=== PATIENT | female | born 1945 | race Caucasian/White ===

== ENCOUNTER 2020-05-31 23:36 | Emergency (ER) | payer MEDICARE, MEDICAID ==
[~2020-05-31] VITALS: Ht 165.1 cm; Wt 112.7 kg
[2020-05-31] MEDS ORDERED: ZOCOR20 M1 PO (23:55)
[2020-05-31] MEDS ORDERED: NORVASC 5MG5 MG/TAB PO (23:55)
[2020-05-31] MEDS ORDERED: LOTENSIN40 M1 PO (23:56)
[2020-06-01 01:43] LABS: HEMATOCRIT 35.1 % (37.0-47.0); HEMOGLOBIN 10.2 g/dL (12.5-16.0); MEAN CELL VOLUME 82 fl (78-100); MEAN PLATELET VOLUME 9.7 fl (7.4-10.4); PLATELET COUNT 326 K/mm3 (130-400); RED BLOOD COUNT 4.26 M/mm3 (4.10-5.30); RED CELL DISTRIBUTION WIDTH 16.9 % (11.5-14.5); WHITE BLOOD COUNT 8.2 K/mm3 (4.8-10.8)
[2020-06-01 01:51] LABS: MEAN CORPUSCULAR HEMOGLOBIN 24 pg (27-31); MEAN CORPUSCULAR HGB CONC 29 g/dL (33-37)
[2020-06-01 01:52] LABS: HYPOCHROMIA 2+; LYMPHOCYTE 32 % (20-51); MICROCYTOSIS 1+; MONOCYTE 10 % (3-10); NEUTROPHILS 55 % (42-75)
[2020-06-01 01:53] LABS: ALBUMIN 3.7 g/dL (3.4-4.8)
[2020-06-01 01:54] LABS: POTASSIUM 4.2 mmol/L (3.5-5.1); SODIUM 140 mmol/L (136-145)
[2020-06-01 01:55] LABS: CALCIUM 8.8 mg/dL (8.3-10.5)
[2020-06-01 01:56] LABS: GLUCOSE 105 mg/dL (65-105); TOTAL PROTEIN 6.8 g/dL (6.2-8.1)
[2020-06-01 01:57] LABS: CARBON DIOXIDE 24 mmol/L (23-31)
[2020-06-01 01:58] LABS: TOTAL BILIRUBIN 0.4 mg/dL (0.2-1.2)
[2020-06-01 02:01] LABS: AST-SGOT 16 U/L (5-34)
[2020-06-01 02:02] LABS: MAGNESIUM 2.18 mg/dL (1.60-2.60)
[2020-06-01 02:03] LABS: URINE APPEARANCE CLEAR; URINE COLOR YELLOW
[2020-06-01 02:03] LABS: ALT/SGPT 13 U/L (0-55)
[2020-06-01 02:04] LABS: URINE BILIRUBIN NEGATIVE (NEGATIVE); URINE BLOOD NEGATIVE (NEGATIVE); URINE GLUCOSE NEGATIVE (NEGATIVE); URINE KETONE NEGATIVE (NEGATIVE); URINE LEUKOCYTE ESTERASE NEGATIVE (NEGATIVE); URINE NITRATE POSITIVE (NEGATIVE); URINE PROTEIN(semi-quant) NEGATIVE (NEGATIVE); URINE UROBILINOGEN NORMAL (NORMAL); URINE WBC 0-1 /hpf (0-3)
[2020-06-01 02:09] LABS: TROPONIN-I < 0.03 ng/mL (<0.030)
[2020-06-01] MEDS ORDERED: LEVSIN-SL0.125 MG SL (04:12)
[2020-06-01] MEDS ORDERED: CEPHALEXIN500 M1 PO (04:12)
[2020-06-01 04:38] VITALS: BP 145/73
== END 2020-06-01 04:45 | disposition home or self-care (01) ==
LOC: ED 23:36
PROVIDERS: Nurse Practitioner Family
DX: K29.50 Unspecified chronic gastritis without bleeding (principal); N39.0 Urinary tract infection, site not specified; I10 Essential (primary) hypertension; E78.5 Hyperlipidemia, unspecified; Z88.5 Allergy status to narcotic agent; Z79.899 Other long term (current) drug therapy
CPT/HCPCS: Q9967

== ENCOUNTER → 2020-12-12 | Outpatient (CLI) | payer MEDICARE, MEDICAID ==
[~2020-12-12] MED LIST: CEPHALEXIN500 M1 PO; LEVSIN-SL0.125 MG SL; LOTENSIN40 M1 PO; NORVASC 5MG5 MG/TAB PO; ZOCOR20 M1 PO
== END ==
LOC: RAD 10:45 → MAMMO 01-01 10:45 → RAD 01-02 13:36 → MAMMO 01-02 14:30
DX: I08.3 Combined rheumatic disorders of mitral, aortic and tricuspid valves (principal)

== ENCOUNTER → 2020-12-14 | Outpatient (CLI) | payer MEDICARE, MEDICAID ==
[2020-12-14 10:06] LABS: ALBUMIN 2.7 g/dL (3.4-4.8); POTASSIUM 3.7 mmol/L (3.5-5.1)
[2020-12-14 10:07] LABS: CALCIUM 7.8 mg/dL (8.3-10.5)
[2020-12-14 10:09] LABS: TOTAL PROTEIN 6.2 g/dL (6.2-8.1)
[2020-12-14 10:10] LABS: TOTAL BILIRUBIN 0.5 mg/dL (0.2-1.2)
[2020-12-14 11:27] LABS: HEMATOCRIT 31.3 % (37.0-47.0); HEMOGLOBIN 9.6 g/dL (12.5-16.0); MEAN CELL VOLUME 83 fl (78-100); MEAN CORPUSCULAR HEMOGLOBIN 26 pg (27-31); MEAN CORPUSCULAR HGB CONC 31 g/dL (33-37); MEAN PLATELET VOLUME 8.7 fl (7.4-10.4); RED BLOOD COUNT 3.76 M/mm3 (4.10-5.30); WHITE BLOOD COUNT 10.9 K/mm3 (4.8-10.8)
[2020-12-14 11:39] LABS: PLATELET COUNT 512 K/mm3 (130-400)
[2020-12-14 11:51] LABS: HYPOCHROMIA 1+; LYMPHOCYTE 10 % (20-51); MONOCYTE 11 % (3-10); NEUTROPHILS 78 % (42-75)
== END ==
LOC: LAB 09:40
PROVIDERS: Family Medicine
DX: E78.00 Pure hypercholesterolemia, unspecified (principal); I10 Essential (primary) hypertension; D64.9 Anemia, unspecified; R60.0 Localized edema

== ENCOUNTER → 2020-12-28 | Outpatient (CLI) | payer MEDICARE, MEDICAID | LOC: CARDLAB 08:04 → CARDREHAB 08:44 → CARDLAB 12:24 | DX: Z01.810 Encounter for preprocedural cardiovascular examination (principal); R06.09 Other forms of dyspnea | CPT/HCPCS: A9500 ==

== ENCOUNTER → 2021-01-07 | Outpatient (CLI) | payer MEDICARE, MEDICAID ==
[2021-01-07 11:51] LABS: HEMATOCRIT 42.9 % (37.0-47.0); HEMOGLOBIN 12.9 g/dL (12.5-16.0); MEAN PLATELET VOLUME 9.6 fl (7.4-10.4); RED BLOOD COUNT 4.84 M/mm3 (4.10-5.30); RED CELL DISTRIBUTION WIDTH 18.3 % (11.5-14.5); WHITE BLOOD COUNT 8.9 K/mm3 (4.8-10.8)
[2021-01-07 11:56] LABS: POTASSIUM 4.5 mmol/L (3.5-5.1)
[2021-01-07 11:57] LABS: CALCIUM 9.2 mg/dL (8.3-10.5)
== END ==
LOC: LAB 11:36
PROVIDERS: Family Medicine
DX: R73.9 Hyperglycemia, unspecified (principal)

== ENCOUNTER → 2021-01-30 | Outpatient (CLI) | payer MEDICARE, MEDICAID | LOC: MAMMO 10:42 | DX: Z12.31 Encounter for screening mammogram for malignant neoplasm of breast (principal) ==

== ENCOUNTER → 2021-01-30 | Outpatient (CLI) | payer MEDICARE, MEDICAID | LOC: MAMMO 10:41 | DX: Z12.39 Encounter for other screening for malignant neoplasm of breast (principal); Z13.820 Encounter for screening for osteoporosis; M85.80 Other specified disorders of bone density and structure, unspecified site ==

== ENCOUNTER → 2021-03-26 | Outpatient (CLI) | payer MEDICARE, MEDICAID ==
[2021-03-26 11:46] LABS: HEMOGLOBIN 13.6 g/dL (12.5-16.0); MEAN PLATELET VOLUME 9.2 fl (7.4-10.4); RED BLOOD COUNT 4.86 M/mm3 (4.10-5.30); RED CELL DISTRIBUTION WIDTH 14.2 % (11.5-14.5); WHITE BLOOD COUNT 8.8 K/mm3 (4.8-10.8)
[2021-03-26 11:54] LABS: ALBUMIN 3.8 g/dL (3.4-4.8); POTASSIUM 4.1 mmol/L (3.5-5.1)
[2021-03-26 11:55] LABS: CALCIUM 9.8 mg/dL (8.3-10.5)
[2021-03-26 11:56] LABS: TOTAL PROTEIN 7.8 g/dL (6.2-8.1)
[2021-03-26 11:58] LABS: TOTAL BILIRUBIN 0.7 mg/dL (0.2-1.2)
== END ==
LOC: LAB 11:29
PROVIDERS: Surgery
DX: Z48.89 Encounter for other specified surgical aftercare (principal)

== ENCOUNTER → 2021-08-05 | Outpatient (CLI) | payer MEDICARE, MEDICAID ==
[2021-08-05 13:39] LABS: CALCIUM 9.7 mg/dL (8.3-10.5)
[2021-08-05 14:23] LABS: POTASSIUM 4.7 mmol/L (3.5-5.1)
== END ==
LOC: LAB 13:15
PROVIDERS: Family Medicine
DX: R60.0 Localized edema (principal)

== ENCOUNTER → 2021-11-14 | Outpatient (CLI) | payer MEDICARE, MEDICAID ==
[~2021-11-14] VITALS: Ht 165.1 cm; Wt 107.7 kg
[2021-11-14 11:21] LABS: BASO # 0.03 K/mm3 (0.02-0.10); EOS % 1.6 % (1.0-5.0); HEMATOCRIT 43.3 % (37.0-47.0); HEMOGLOBIN 13.7 g/dL (12.5-16.0); LYMPH# 1.36 K/mm3 (1.50-4.00); MEAN CELL VOLUME 96 fl (78-100); MEAN CORPUSCULAR HEMOGLOBIN 30 pg (27-31); MEAN CORPUSCULAR HGB CONC 32 g/dL (33-37); MEAN PLATELET VOLUME 9.2 fl (7.4-10.4); MONO # 0.67 K/mm3 (0.20-0.80); NEU # 4.08 K/mm3 (1.40-6.50); PLATELET COUNT 252 K/mm3 (130-400); RED BLOOD COUNT 4.52 M/mm3 (4.10-5.30); RED CELL DISTRIBUTION WIDTH 13.5 % (11.5-14.5); WHITE BLOOD COUNT 6.3 K/mm3 (4.8-10.8)
[2021-11-14 11:32] LABS: ALBUMIN 3.6 g/dL (3.4-4.8); POTASSIUM 4.3 mmol/L (3.5-5.1)
[2021-11-14 11:35] LABS: TOTAL PROTEIN 6.5 g/dL (6.2-8.1)
[2021-11-14 11:36] LABS: TOTAL BILIRUBIN 0.7 mg/dL (0.2-1.2)
[2021-11-14 12:10] LABS: URINE APPEARANCE CLOUDY; URINE BILIRUBIN NEGATIVE (NEGATIVE); URINE BLOOD TRACE (NEGATIVE); URINE COLOR YELLOW; URINE GLUCOSE NEGATIVE (NEGATIVE); URINE KETONE 1+ (NEGATIVE); URINE LEUKOCYTE ESTERASE TRACE (NEGATIVE); URINE NITRATE NEGATIVE (NEGATIVE); URINE PROTEIN(semi-quant) NEGATIVE (NEGATIVE); URINE UROBILINOGEN NORMAL (NORMAL)
[2021-11-14 12:11] LABS: URINE MUCUS PRESENT (NOT PRESENT)
[2021-11-14 14:14] VITALS: BP 156/79
[2021-11-14 14:26] LABS: ERYTHROCYTE SEDIMENTATION RATE 7 mm/hr (0-30)
== END ==
LOC: RAD 11:03
PROVIDERS: Family Medicine
DX: G47.30 Sleep apnea, unspecified (principal); R01.1 Cardiac murmur, unspecified; H81.393 Other peripheral vertigo, bilateral; B37.2 Candidiasis of skin and nail; R73.9 Hyperglycemia, unspecified; R19.5 Other fecal abnormalities
CPT/HCPCS: J7030

== ENCOUNTER → 2021-11-15 | Outpatient (CLI) | payer MEDICARE, MEDICAID | LOC: LAB 10:27 | DX: R06.09 Other forms of dyspnea (principal); R01.1 Cardiac murmur, unspecified; R19.5 Other fecal abnormalities; G47.30 Sleep apnea, unspecified; H81.399 Other peripheral vertigo, unspecified ear; B37.2 Candidiasis of skin and nail; R51.9 Headache, unspecified; H81.393 Other peripheral vertigo, bilateral; R73.9 Hyperglycemia, unspecified; R05.2 Subacute cough ==

== ENCOUNTER → 2022-02-03 | Outpatient (CLI) | payer MEDICARE, MEDICAID ==
[2022-02-03 09:33] LABS: ALBUMIN 3.7 g/dL (3.4-4.8); POTASSIUM 4.4 mmol/L (3.5-5.1)
[2022-02-03 09:34] LABS: CALCIUM 9.1 mg/dL (8.3-10.5)
[2022-02-03 09:35] LABS: TOTAL PROTEIN 6.9 g/dL (6.2-8.1)
[2022-02-03 09:37] LABS: TOTAL BILIRUBIN 0.9 mg/dL (0.2-1.2)
== END ==
LOC: LAB 09:10
PROVIDERS: Family Medicine
DX: B35.4 Tinea corporis (principal); R09.02 Hypoxemia; E78.00 Pure hypercholesterolemia, unspecified; I10 Essential (primary) hypertension; R60.0 Localized edema

== ENCOUNTER → 2022-02-19 | Outpatient (CLI) | payer MEDICARE, MEDICAID | LOC: MAMMO 10:30 | DX: Z12.31 Encounter for screening mammogram for malignant neoplasm of breast (principal) ==

== ENCOUNTER 2022-04-17 10:48 | Outpatient (RCR) | payer MEDICARE, MEDICAID | END 2022-05-07 | disposition home or self-care (01) | LOC: OT | DX: S63.501D Unspecified sprain of right wrist, subsequent encounter (principal); X58.XXXD Exposure to other specified factors, subsequent encounter ==

== ENCOUNTER 2022-06-12 09:59 | Outpatient (RCR) | payer MEDICARE, MEDICAID ==
[2022-06-27] MEDS ORDERED: ROSUVASTATIN CAL5 MG PO (10:04)
[2022-06-27] MEDS ORDERED: ALENDRONATE SOD35 M1 PO (10:04)
[2022-06-27] MEDS ORDERED: BENAZEPRIL HCL20 MG PO (10:05)
== END 2022-07-08 | disposition home or self-care (01) ==
LOC: PT
DX: H91.93 Unspecified hearing loss, bilateral (principal); H93.13 Tinnitus, bilateral

== ENCOUNTER 2022-06-27 09:52 | Emergency (ER) | payer MEDICARE, MEDICAID ==
[~2022-06-27] VITALS: Ht 162.6 cm; Wt 119.0 kg
[2022-06-27] MEDS ORDERED: ROSUVASTATIN CAL5 MG PO (10:04)
[2022-06-27] MEDS ORDERED: ALENDRONATE SOD35 M1 PO (10:04)
[2022-06-27] MEDS ORDERED: BENAZEPRIL HCL20 MG PO (10:05)
[2022-06-27 10:55] LABS: ALBUMIN 3.8 g/dL (3.4-4.8)
[2022-06-27 10:56] LABS: POTASSIUM 4.4 mmol/L (3.5-5.1); SODIUM 140 mmol/L (136-145)
[2022-06-27 10:59] LABS: CARBON DIOXIDE 21 mmol/L (23-31)
[2022-06-27 11:00] LABS: TOTAL BILIRUBIN 1.2 mg/dL (0.2-1.2)
[2022-06-27 11:03] LABS: AST-SGOT 18 U/L (5-34)
[2022-06-27 11:05] LABS: BASO # 0.03 K/mm3 (0.02-0.10); EOS # 0.16 K/mm3 (0.04-0.40); EOS % 2.2 % (1.0-5.0); HEMATOCRIT 47.7 % (37.0-47.0); HEMOGLOBIN 15.4 g/dL (12.5-16.0); MEAN CELL VOLUME 97 fl (78-100); MEAN CORPUSCULAR HEMOGLOBIN 31 pg (27-31); MEAN CORPUSCULAR HGB CONC 32 g/dL (33-37); MONO # 0.81 K/mm3 (0.20-0.80); NEU # 4.63 K/mm3 (1.40-6.50); PLATELET COUNT 227 K/mm3 (130-400); RED BLOOD COUNT 4.94 M/mm3 (4.10-5.30); RED CELL DISTRIBUTION WIDTH 13.6 % (11.5-14.5); WHITE BLOOD COUNT 7.3 K/mm3 (4.8-10.8)
[2022-06-27 11:05] LABS: ALT/SGPT 17 U/L (0-55); LIPASE 7 U/L (8-78)
[2022-06-27 11:12] LABS: URINE APPEARANCE CLEAR; URINE BILIRUBIN NEGATIVE (NEGATIVE); URINE BLOOD NEGATIVE (NEGATIVE); URINE COLOR YELLOW; URINE GLUCOSE NEGATIVE (NEGATIVE); URINE KETONE NEGATIVE (NEGATIVE); URINE LEUKOCYTE ESTERASE NEGATIVE (NEGATIVE); URINE NITRATE NEGATIVE (NEGATIVE); URINE PROTEIN(semi-quant) TRACE (NEGATIVE); URINE UROBILINOGEN NORMAL (NORMAL)
[2022-06-27 11:12] LABS: TROPONIN-I < 0.030 ng/mL (<0.030)
[2022-06-27 11:18] LABS: URINE WBC 0-1 /hpf (0-3)
[2022-06-27 11:21] LABS: TOTAL PROTEIN 7.2 g/dL (6.2-8.1)
[2022-06-27 11:23] LABS: GLUCOSE 119 mg/dL (65-105)
[2022-06-27 13:50] VITALS: BP 170/84
== END 2022-06-27 13:43 | disposition home or self-care (01) ==
LOC: ED 09:52
PROVIDERS: Physician Assistant
DX: Q45.3 Other congenital malformations of pancreas and pancreatic duct (principal); Z90.49 Acquired absence of other specified parts of digestive tract; Z98.890 Other specified postprocedural states
CPT/HCPCS: J3010; Q9967

== ENCOUNTER → 2022-07-03 | Outpatient (CLI) | payer MEDICARE, MEDICAID ==
[~2022-07-03] MED LIST changes: +ALENDRONATE SOD35 M1 PO; +BENAZEPRIL HCL20 MG PO; +ROSUVASTATIN CAL5 MG PO
== END ==
LOC: RAD 07:00
DX: R10.33 Periumbilical pain (principal)

== ENCOUNTER → 2023-02-23 | Outpatient (CLI) | payer MEDICARE, MEDICAID ==
[~2023-02-23] MED LIST changes: +FUROSEMIDE40 MG; +POTASSIUM CHLO10 ME8 PO; +ROBAXIN 75750 MG/TA1 PO
[2023-02-23 11:20] LABS: POTASSIUM 4.6 mmol/L (3.5-5.1)
[2023-02-23 11:22] LABS: CALCIUM 9.3 mg/dL (8.3-10.5)
== END ==
LOC: LAB 10:58
PROVIDERS: Family Medicine
DX: M62.830 Muscle spasm of back (principal); R60.0 Localized edema; I10 Essential (primary) hypertension; E78.00 Pure hypercholesterolemia, unspecified; R09.02 Hypoxemia

== ENCOUNTER → 2023-06-26 | Outpatient (CLI) | payer MEDICARE, MEDICAID ==
[2023-06-26 12:27] LABS: CALCIUM 9.5 mg/dL (8.3-10.5)
[2023-06-26 12:30] LABS: URINE APPEARANCE CLOUDY (CLEAR); URINE COLOR YELLOW (YELLOW); URINE PROTEIN(semi-quant) NEGATIVE (NEGATIVE)
[2023-06-26 12:31] LABS: URINE BILIRUBIN NEGATIVE (NEGATIVE); URINE BLOOD TRACE-INTACT (NEGATIVE); URINE GLUCOSE NEGATIVE (NEGATIVE); URINE KETONE NEGATIVE (NEGATIVE); URINE LEUKOCYTE ESTERASE NEGATIVE (NEGATIVE); URINE NITRATE NEGATIVE (NEGATIVE); URINE WBC >50 /hpf (0-3)
== END ==
LOC: LAB 11:44
PROVIDERS: Family Medicine
DX: Z11.59 Encounter for screening for other viral diseases (principal); I10 Essential (primary) hypertension; E78.2 Mixed hyperlipidemia; R35.0 Frequency of micturition

== ENCOUNTER 2023-07-28 11:01 | Outpatient (RCR) | payer MEDICARE | END 2023-08-06 | disposition home or self-care (01) | LOC: PT | DX: M72.2 Plantar fascial fibromatosis (principal); M76.822 Posterior tibial tendinitis, left leg; M62.571 Muscle wasting and atrophy, not elsewhere classified, right ankle and foot; M62.572 Muscle wasting and atrophy, not elsewhere classified, left ankle and foot; G63 Polyneuropathy in diseases classified elsewhere ==

== ENCOUNTER 2024-01-26 21:30 | Emergency (ER) | payer MEDICARE, MEDICAID ==
[~2024-01-26] VITALS: Ht 177.8 cm; Wt 122.4 kg
[~2024-01-26 21:30] MED LIST changes: -FUROSEMIDE40 MG; +FUROSEMIDE40 MG PO
[2024-01-26] MEDS ORDERED: Doxycycline Monohydrate 100 MG CAP PO ONE (22:45)
[2024-01-26] MEDS ORDERED: Albuterol/Ipratropium 3 MG-0.5 MG/3 ML Neb Soln IH ONE (22:45)
[2024-01-26] MEDS ORDERED: FAMOTIDINE20 MG PO (22:56)
[2024-01-26] MEDS ORDERED: B COMPLEX1 EACH PO (22:56)
[2024-01-26] MEDS ORDERED: ST. JOSEPH ASPI81 M1 PO (22:57)
[2024-01-26] MEDS ORDERED: NIACIN500 M7 PO (22:58)
[2024-01-26 23:08] LABS: BASO # 0.01 K/mm3 (0.02-0.10); EOS # 0.33 K/mm3 (0.04-0.40); EOS % 3.7 % (1.0-5.0); HEMATOCRIT 42.4 % (37.0-47.0); HEMOGLOBIN 13.7 g/dL (12.5-16.0); LYMPH# 1.29 K/mm3 (1.50-4.00); MEAN CELL VOLUME 100 fl (78-100); MEAN CORPUSCULAR HEMOGLOBIN 32 pg (27-31); MEAN CORPUSCULAR HGB CONC 32 g/dL (33-37); MEAN PLATELET VOLUME 9.9 fl (7.4-10.4); MONO # 1.18 K/mm3 (0.20-0.80); NEU # 6.12 K/mm3 (1.40-6.50); PLATELET COUNT 230 K/mm3 (130-400); RED BLOOD COUNT 4.26 M/mm3 (4.10-5.30); RED CELL DISTRIBUTION WIDTH 13.1 % (11.5-14.5)
[2024-01-26 23:15] LABS: SODIUM 138 mmol/L (136-145)
[2024-01-26 23:16] LABS: ALBUMIN 3.6 g/dL (3.4-4.8)
[2024-01-26 23:18] LABS: TOTAL PROTEIN 6.8 g/dL (6.2-8.1)
[2024-01-26 23:19] LABS: CARBON DIOXIDE 21 mmol/L (23-31); GLUCOSE 172 mg/dL (65-105)
[2024-01-26 23:20] LABS: TOTAL BILIRUBIN 1.9 mg/dL (0.2-1.2)
[2024-01-26 23:23] LABS: AST-SGOT 203 U/L (5-34)
[2024-01-26 23:24] LABS: PROTHROMBIN TIME 10.2 SECONDS (9.0-12.0)
[2024-01-26 23:26] LABS: ALT/SGPT 167 U/L (0-55)
[2024-01-26 23:36] LABS: TROPONIN-I < 0.030 ng/mL (0.00-0.033)
[2024-01-27] MEDS ORDERED: MAGNESIUM250 M1 PO (00:14)
[2024-01-27 00:32] LABS: URINE APPEARANCE CLOUDY (CLEAR); URINE BILIRUBIN 1+ (NEGATIVE); URINE COLOR AMBER (YELLOW); URINE GLUCOSE NEGATIVE (NEGATIVE); URINE KETONE TRACE (NEGATIVE); URINE NITRATE NEGATIVE (NEGATIVE); URINE PROTEIN(semi-quant) NEGATIVE (NEGATIVE)
[2024-01-27 00:33] LABS: URINE BLOOD NEGATIVE (NEGATIVE); URINE LEUKOCYTE ESTERASE 1+ (NEGATIVE); URINE MUCUS PRESENT (NOT PRESENT)
[2024-01-27] MEDS ORDERED: Iohexol 350 - 100 ML VIAL IV ONE (00:45)
[2024-01-27 02:08] LABS: D-DIMER 1.04 mg/L FEU (0.15-0.50)
[2024-01-27] MEDS ORDERED: Ketorolac 30 MG/ML VIAL IV ONE (03:00)
[2024-01-27] MEDS ORDERED: NYSTOP POWDER15 GM TP (04:04)
[2024-01-27] MEDS ORDERED: VIBRAMYCIN HYC100 MG PO (04:04)
[2024-01-27 04:25] VITALS: BP 129/70
[2024-01-28] MEDS ORDERED: AZO-CRANBERRY450 MG PO (20:40)
== END 2024-01-27 04:25 | disposition home or self-care (01) ==
LOC: ED 21:30
PROVIDERS: Internal Medicine; Physician Assistant
DX: L03.113 Cellulitis of right upper limb (principal); B37.9 Candidiasis, unspecified; R74.01 Elevation of levels of liver transaminase levels; R05.9 Cough, unspecified
CPT/HCPCS: J1885; Q9967

== ENCOUNTER 2024-01-28 16:03 | Emergency (ER) | payer MEDICARE, MEDICAID ==
[~2024-01-28] VITALS: Ht 157.5 cm; Wt 122.3 kg
[~2024-01-28 16:03] MED LIST changes: +B COMPLEX1 EACH PO; +FAMOTIDINE20 MG PO; +MAGNESIUM250 M1 PO; +NIACIN500 M7 PO; +NYSTOP POWDER15 GM TP; +ST. JOSEPH ASPI81 M1 PO; +VIBRAMYCIN HYC100 MG PO
[2024-01-28 17:16] LABS: BASO # 0.03 K/mm3 (0.02-0.10); EOS # 0.33 K/mm3 (0.04-0.40); EOS % 2.8 % (1.0-5.0); HEMATOCRIT 41.6 % (37.0-47.0); HEMOGLOBIN 13.4 g/dL (12.5-16.0); LYMPH# 1.37 K/mm3 (1.50-4.00); MEAN CELL VOLUME 99 fl (78-100); MEAN CORPUSCULAR HEMOGLOBIN 32 pg (27-31); MEAN CORPUSCULAR HGB CONC 32 g/dL (33-37); MEAN PLATELET VOLUME 9.7 fl (7.4-10.4); MONO # 1.22 K/mm3 (0.20-0.80); NEU # 8.95 K/mm3 (1.40-6.50); PLATELET COUNT 231 K/mm3 (130-400); RED BLOOD COUNT 4.21 M/mm3 (4.10-5.30); RED CELL DISTRIBUTION WIDTH 13.2 % (11.5-14.5)
[2024-01-28 17:26] LABS: ALBUMIN 3.4 g/dL (3.4-4.8)
[2024-01-28 17:28] LABS: TOTAL PROTEIN 6.6 g/dL (6.2-8.1)
[2024-01-28 17:30] LABS: TOTAL BILIRUBIN 2.6 mg/dL (0.2-1.2)
[2024-01-28] MEDS ORDERED: Piperacillin/Tazobactam Sodium 4.5 GM in Water For Injection,Sterile 20 ML IV ONE (18:00)
[2024-01-28] MEDS ORDERED: Vancomycin 2 G in NS 500 ML IV ONE (18:15)
[2024-01-28 20:00] VITALS: BP 135/72
[2024-01-28] MEDS ORDERED: AZO-CRANBERRY450 MG PO (20:40)
== END 2024-01-28 20:00 | disposition still patient (30) ==
LOC: ED 16:03
PROVIDERS: Family Medicine
DX: A41.9 Sepsis, unspecified organism (principal); E66.01 Morbid (severe) obesity due to excess calories; L03.314 Cellulitis of groin; R74.01 Elevation of levels of liver transaminase levels
CPT/HCPCS: J2543; J3370; J7040; J7120

== ENCOUNTER 2024-01-28 17:58 | Inpatient (IN) | payer MEDICARE, MEDICAID ==
[~2024-01-28] VITALS: Ht 160 cm; Wt 120.8 kg
[2024-01-28] MEDS ORDERED: Ibuprofen 200 MG TAB PO PRN (18:15)
[2024-01-28] MEDS ORDERED: Polyethylene Glycol 3350 Powder 17 GM PACKET PO PRN (18:15)
[2024-01-28 20:11] VITALS: BP 135/72
[2024-01-28] MEDS ORDERED: AZO-CRANBERRY450 MG PO (20:40)
[2024-01-28] MEDS ORDERED: Miconazole 2% Topical Powder BOTTLE TP SCH (21:00)
[2024-01-29] MEDS ORDERED: Piperacillin/Tazobactam Sodium 4.5 GM in NS 100 ML IV SCH
[2024-01-29 02:25] VITALS: BP 155/67
[2024-01-29 05:46] VITALS: BP 148/78
[2024-01-29] MEDS ORDERED: Magnesium Oxide 400 MG TAB PO SCH (09:00)
[2024-01-29] MEDS ORDERED: amLODIPine 5 MG TAB PO SCH (09:00)
[2024-01-29] MEDS ORDERED: Lisinopril 5 MG TAB PO SCH (09:00)
[2024-01-29] MEDS ORDERED: Famotidine 20 MG TAB PO SCH (09:00)
[2024-01-29 09:08] VITALS: BP 167/79
[2024-01-29 09:27] LABS: ALBUMIN 3.5 g/dL (3.4-4.8)
[2024-01-29 09:30] LABS: TOTAL PROTEIN 6.7 g/dL (6.2-8.1)
[2024-01-29 09:31] LABS: TOTAL BILIRUBIN 2.4 mg/dL (0.2-1.2)
[2024-01-29 09:33] LABS: BASO # 0.03 K/mm3 (0.02-0.10); EOS # 0.33 K/mm3 (0.04-0.40); EOS % 2.6 % (1.0-5.0); HEMATOCRIT 40.8 % (37.0-47.0); HEMOGLOBIN 13.2 g/dL (12.5-16.0); LYMPH# 1.24 K/mm3 (1.50-4.00); MEAN CELL VOLUME 99 fl (78-100); MEAN CORPUSCULAR HEMOGLOBIN 32 pg (27-31); MEAN CORPUSCULAR HGB CONC 32 g/dL (33-37); MEAN PLATELET VOLUME 9.8 fl (7.4-10.4); MONO # 0.93 K/mm3 (0.20-0.80); NEU # 10.15 K/mm3 (1.40-6.50); PLATELET COUNT 248 K/mm3 (130-400); RED BLOOD COUNT 4.13 M/mm3 (4.10-5.30); RED CELL DISTRIBUTION WIDTH 13.3 % (11.5-14.5); WHITE BLOOD COUNT 12.8 K/mm3 (4.8-10.8)
[2024-01-29 09:36] LABS: MAGNESIUM 2.15 mg/dL (1.60-2.60)
[2024-01-29 14:19] VITALS: BP 159/69
[2024-01-29] MEDS ORDERED: diphenhydrAMINE 25 MG CAP PO PRN (16:00)
[2024-01-29] MEDS ORDERED: predniSONE 10 MG TAB PO SCH (16:00)
[2024-01-29] MEDS ORDERED: ceFAZolin 2 G in Water For Injection,Sterile 20 ML IV SCH (16:00)
[2024-01-29 18:24] VITALS: BP 155/84
[2024-01-29 22:01] VITALS: BP 149/75
[2024-01-30 06:16] VITALS: BP 123/68
[2024-01-30 09:38] LABS: BASO # 0.03 K/mm3 (0.02-0.10); HEMATOCRIT 40.7 % (37.0-47.0); HEMOGLOBIN 13.2 g/dL (12.5-16.0); LYMPH# 1.36 K/mm3 (1.50-4.00); MEAN CELL VOLUME 100 fl (78-100); MEAN CORPUSCULAR HEMOGLOBIN 33 pg (27-31); MEAN CORPUSCULAR HGB CONC 32 g/dL (33-37); MEAN PLATELET VOLUME 10.1 fl (7.4-10.4); MONO # 0.97 K/mm3 (0.20-0.80); PLATELET COUNT 282 K/mm3 (130-400); RED BLOOD COUNT 4.06 M/mm3 (4.10-5.30); RED CELL DISTRIBUTION WIDTH 13.2 % (11.5-14.5); WHITE BLOOD COUNT 17.6 K/mm3 (4.8-10.8)
[2024-01-30 09:54] VITALS: BP 133/74
[2024-01-30 10:37] LABS: ALBUMIN 3.4 g/dL (3.4-4.8); TOTAL PROTEIN 6.7 g/dL (6.2-8.1)
[2024-01-30 10:38] LABS: CALCIUM 9.3 mg/dL (8.3-10.5)
[2024-01-30 10:41] LABS: TOTAL BILIRUBIN 1.1 mg/dL (0.2-1.2)
[2024-01-30 14:01] VITALS: BP 136/74
[2024-01-30] MEDS ORDERED: guaiFENesin/Dextromethorphan Oral Soln 200-20 MG/10 ML UD PO PRN (17:45)
[2024-01-30 17:51] VITALS: BP 131/76
[2024-01-30] MEDS ORDERED: Heparin 5,000 UNITS/ML 1 ML VIAL IV PRN (18:00)
[2024-01-30] MEDS ORDERED: Heparin 5,000 UNITS/ML 1 ML VIAL IV ONE (18:00)
[2024-01-30 21:41] VITALS: BP 128/63
[2024-01-31 05:51] VITALS: BP 137/66
[2024-01-31] MEDS ORDERED: Nitrofurantoin (Mono/Macro) 100 MG CAPSULE PO SCH (08:00)
[2024-01-31 10:10] VITALS: BP 127/63
[2024-01-31 14:00] VITALS: BP 147/74
[2024-01-31 17:12] VITALS: BP 138/81
[2024-01-31 21:28] VITALS: BP 138/64
[2024-02-01 06:10] VITALS: BP 143/74
[2024-02-01 08:02] LABS: HEMATOCRIT 41.4 % (37.0-47.0); HEMOGLOBIN 13.3 g/dL (12.5-16.0); MEAN CELL VOLUME 99 fl (78-100); MEAN CORPUSCULAR HEMOGLOBIN 32 pg (27-31); MEAN CORPUSCULAR HGB CONC 32 g/dL (33-37); MEAN PLATELET VOLUME 9.8 fl (7.4-10.4); PLATELET COUNT 272 K/mm3 (130-400); RED BLOOD COUNT 4.18 M/mm3 (4.10-5.30); RED CELL DISTRIBUTION WIDTH 13.4 % (11.5-14.5); WHITE BLOOD COUNT 17.3 K/mm3 (4.8-10.8)
[2024-02-01 08:14] LABS: ALBUMIN 3.6 g/dL (3.4-4.8)
[2024-02-01 08:16] LABS: CALCIUM 9.3 mg/dL (8.3-10.5)
[2024-02-01 08:17] LABS: TOTAL PROTEIN 6.8 g/dL (6.2-8.1)
[2024-02-01 08:19] LABS: TOTAL BILIRUBIN 0.6 mg/dL (0.2-1.2)
[2024-02-01 10:03] VITALS: BP 139/85
[2024-02-01 10:17] LABS: BAND 5 % (0-10); LYMPHOCYTE 13 % (20-51); MONOCYTE 6 % (3-10)
[2024-02-01 10:18] LABS: METAMYELOCYTE 3 % (0-0); MYELOCYTE 1 % (0-0); NEUTROPHILS 72 % (42-75); NUCLEATED RED BLOOD CELL 1 (0-6)
[2024-02-01 13:38] VITALS: BP 165/88
[2024-02-01 18:10] VITALS: BP 148/82
[2024-02-01 21:48] VITALS: BP 126/67
[2024-02-02 02:06] VITALS: BP 161/71
[2024-02-02 06:15] VITALS: BP 168/75
[2024-02-02] MEDS ORDERED: predniSONE 10 MG TAB PO SCH (08:00)
[2024-02-02 10:08] VITALS: BP 144/77
[2024-02-02 11:05] LABS: HEMATOCRIT 38.6 % (37.0-47.0); HEMOGLOBIN 12.4 g/dL (12.5-16.0); MEAN CELL VOLUME 100 fl (78-100); MEAN CORPUSCULAR HEMOGLOBIN 32 pg (27-31); MEAN CORPUSCULAR HGB CONC 32 g/dL (33-37); MEAN PLATELET VOLUME 9.8 fl (7.4-10.4); PLATELET COUNT 250 K/mm3 (130-400); RED BLOOD COUNT 3.88 M/mm3 (4.10-5.30); RED CELL DISTRIBUTION WIDTH 13.4 % (11.5-14.5); WHITE BLOOD COUNT 16.5 K/mm3 (4.8-10.8)
[2024-02-02 11:12] LABS: ALBUMIN 3.4 g/dL (3.4-4.8)
[2024-02-02 11:13] LABS: CALCIUM 8.7 mg/dL (8.3-10.5)
[2024-02-02 11:15] LABS: TOTAL PROTEIN 6.4 g/dL (6.2-8.1)
[2024-02-02 11:16] LABS: TOTAL BILIRUBIN 0.7 mg/dL (0.2-1.2)
[2024-02-02 11:28] LABS: BAND 2 % (0-10); LYMPHOCYTE 8 % (20-51); METAMYELOCYTE 1 % (0-0); MONOCYTE 10 % (3-10); NEUTROPHILS 79 % (42-75)
[2024-02-02 14:00] VITALS: BP 156/72
[2024-02-02 18:00] VITALS: BP 123/83
[2024-02-02 22:53] VITALS: BP 156/78
[2024-02-03 01:43] VITALS: BP 168/83
[2024-02-03 05:30] VITALS: BP 173/76
[2024-02-03 06:12] LABS: BASO # 0.01 K/mm3 (0.02-0.10); EOS # 0.08 K/mm3 (0.04-0.40); EOS % 0.5 % (1.0-5.0); HEMATOCRIT 39.4 % (37.0-47.0); HEMOGLOBIN 12.6 g/dL (12.5-16.0); LYMPH# 2.35 K/mm3 (1.50-4.00); MEAN CELL VOLUME 100 fl (78-100); MEAN CORPUSCULAR HEMOGLOBIN 32 pg (27-31); MEAN CORPUSCULAR HGB CONC 32 g/dL (33-37); MEAN PLATELET VOLUME 10.1 fl (7.4-10.4); MONO # 1.38 K/mm3 (0.20-0.80); PLATELET COUNT 265 K/mm3 (130-400); RED BLOOD COUNT 3.93 M/mm3 (4.10-5.30); RED CELL DISTRIBUTION WIDTH 13.3 % (11.5-14.5)
[2024-02-03 06:22] LABS: ALBUMIN 3.4 g/dL (3.4-4.8)
[2024-02-03 06:23] LABS: CALCIUM 8.9 mg/dL (8.3-10.5)
[2024-02-03 06:25] LABS: TOTAL PROTEIN 6.4 g/dL (6.2-8.1)
[2024-02-03 06:26] LABS: TOTAL BILIRUBIN 0.6 mg/dL (0.2-1.2)
[2024-02-03 09:36] LABS: NEU # 11.26 K/mm3 (1.40-6.50)
[2024-02-03 10:21] VITALS: BP 154/70
[2024-02-03] MEDS ORDERED: PREDNISONE10 MG PO (12:51)
[2024-02-03] MEDS ORDERED: BACTRIM DS TAB1 EACH PO (12:52)
== END 2024-02-03 13:55 | disposition home or self-care (01) | DRG 872 ==
LOC: MED/SURG 17:58
PROVIDERS: Physician Assistant; ADMIT Family Medicine
DX: A41.9 Sepsis, unspecified organism (principal); L03.90 Cellulitis, unspecified; N39.0 Urinary tract infection, site not specified; R53.1 Weakness; I10 Essential (primary) hypertension; K21.9 Gastro-esophageal reflux disease without esophagitis; E83.42 Hypomagnesemia
CPT/HCPCS: J0690; J1650; J2543; J3370; J7040; J7120; J7512

== ENCOUNTER → 2024-05-25 | Outpatient (CLI) | payer MEDICARE, MEDICAID ==
[~2024-05-25] MED LIST changes: +AZO-CRANBERRY450 MG PO; +BACTRIM DS TAB1 EACH PO; +PREDNISONE10 MG PO
[2024-05-25 12:30] LABS: BASO # 0.03 K/mm3 (0.02-0.10); EOS # 0.16 K/mm3 (0.04-0.40); HEMATOCRIT 44.8 % (37.0-47.0); HEMOGLOBIN 14.1 g/dL (12.5-16.0); LYMPH# 1.78 K/mm3 (1.50-4.00); MEAN CELL VOLUME 100 fl (78-100); MEAN CORPUSCULAR HEMOGLOBIN 31 pg (27-31); MEAN CORPUSCULAR HGB CONC 32 g/dL (33-37); MEAN PLATELET VOLUME 9.3 fl (7.4-10.4); MONO # 0.84 K/mm3 (0.20-0.80); NEU # 5.02 K/mm3 (1.40-6.50); PLATELET COUNT 237 K/mm3 (130-400); RED BLOOD COUNT 4.49 M/mm3 (4.10-5.30); RED CELL DISTRIBUTION WIDTH 12.6 % (11.5-14.5); WHITE BLOOD COUNT 7.9 K/mm3 (4.8-10.8)
[2024-05-25 22:34] LABS: IMMUNOGLOBULIN E, TOTAL 103 IU/mL (0-100)
[2024-05-26 13:45] LABS: ANA SCREEN with REFLEX Negative (Negative)
[2024-05-28 05:38] LABS: ANGIOTENSIN CONVERTING ENZYME 28 U/L (14-82)
== END ==
LOC: LAB 12:06
PROVIDERS: Family Medicine
DX: I10 Essential (primary) hypertension (principal); R06.02 Shortness of breath